=== PATIENT | female | born 1980 | race African-American/Black ===

== ENCOUNTER 2019-04-26 17:46 | Emergency (ER) | payer MEDICAID ==
[~2019-04-26] VITALS: Ht 165.1 cm; Wt 79.0 kg
[2019-04-26 17:58] VITALS: BP 132/84
== END 2019-04-26 21:33 | disposition left against medical advice (07) ==
LOC: ER 21:33
DX: Z53.21 Procedure and treatment not carried out due to patient leaving prior to being seen by health care provider (principal); F17.200 Nicotine dependence, unspecified, uncomplicated